=== PATIENT | female | born 1965 | race Caucasian/White ===

== ENCOUNTER 2025-05-06 11:37 | Day surgery (SDC) | payer BC ==
[2025-05-06] VITALS (25 sets, daily range): BP systolic 109–155; BP diastolic 69–119
[2025-05-06] MEDS ORDERED: Phenylephrine 0.5% Nasal Spray/Drops 15 ML ONE (12:57)
[2025-05-06] MEDS ORDERED: Lidocaine 2% Jelly Uro-Jet ONE (12:57)
[2025-05-06] MEDS ORDERED: EpiNEPhrine 1 MG/1 ML 1ML Vial ONE (12:57)
[2025-05-06] MEDS ORDERED: Midazolam HCl 1MG / ML 2ML Vial ONE (13:04)
[2025-05-06] MEDS ORDERED: FentaNYL Citrate 50 MCG/ML 2 ML Injection ONE (13:05)
--- NOTE | 2025-05-06 13:15 | NUR ---
05/06/25 1315 Carl Lawrence CONFIRMED AND REVIEWED H&P, MEDCICATIONS, ALLERGIES, MEDICAL HISTORY, RESPIRATORY HISTORY, VITAL SIGNS, 3-LEAD EKG, CONSENTS, AND PHYSICIAN ORDERS. PATIENT CONFIRMS NPO STATUS AND AGREES WITH SCHEDULED PROCEDURE. MONITOR INTACT WITH CONTINUOUS PULSE OXIMETRY, CAPNOGRAPHY, 3-LEAD EKG, INTERMITTENT BP. SUPPLEMENTAL O2 TO BE TITRATED THROUGHOUT PROCEDURE TO MAINTAIN O2 SATURATION ABOVE 90%. PATIENT DETERMINED TO BE ASA APPROPRIATE FOR PROPOFOL SEDATION PRIOR TO START OF PROCEDURE BY DR. ZUÑIGA
--- NOTE | 2025-05-06 13:31 | NUR ---
Ambulatory in Day Surgery. History, Chart, Medications and Allergies reviewed before start of procedure. Lungs with rub noted, no respiratory distress, ORA. Partner at bedside. Dr. Todd consulting with pt at bedside. Pt brought in consent she had signed with Dr. Todd outpatient.
[2025-05-06] MEDS ORDERED: Albuterol 2.5 MG/3 ML VIAL ONE (13:55)
[2025-05-06] MEDS ORDERED: Albuterol 2.5 MG/3 ML VIAL INH ONE (14:05)
--- NOTE | 2025-05-06 15:56 | NUR ---
DISCHARGE NOTE PT A&OX4, BREATHING RA, VSS, NO COMPLAINTS. GAG REFLEX TESTED AT 1520, PT ALLOWED TO SIP WATER AND THEN ADVENCED TO COFFEE WITH NO DIFFICULTY- PER DR ZUÑIGA PT ALLOWED TO TRY FLUIDS 1HR AFTER PROCEDURE. HUSN=BAND AT BEDSIDE. Patient up to Ambulate independently. Gait steady. Discharge instructions reviewed with patient. Patient verbalizes understanding. Copy given to patient to take home. Discharged via wheelchair to private car for ride home.
== END 2025-05-06 15:55 | disposition home or self-care (01) ==
LOC: ORSCMMR 11:37 → ORSCSDS 11:37 → ORSCMMR 11:39 → ORSCSDS 15:55
PROVIDERS: Internal Medicine Critical Care Medicine
PROC: 0B9B8ZX Drainage of Left Lower Lobe Bronchus, Via Natural or Artificial Opening Endoscopic, Diagnostic (ICD-10-PCS; principal; 2025-05-06 13:00)
DX: R91.8 Other nonspecific abnormal finding of lung field (principal); J45.909 Unspecified asthma, uncomplicated; F17.210 Nicotine dependence, cigarettes, uncomplicated; Z79.899 Other long term (current) drug therapy
CPT/HCPCS: 87070; 87116; 87205; 88108; 94640; 94664; 94762; A9270; J0169; J2250; J3010; J7120